=== PATIENT | male | born 1965 | race Caucasian/White ===

== ENCOUNTER 2024-02-13 13:45 | Outpatient (CLI) | payer OTHER, SELFPAY ==
--- NOTE | ~2024-02-13 | XR_ITS ---
EXAMINATION: XR knee RT min 4V DATE: 02/13/2024 14:12 INDICATION: Right knee pain TECHNIQUE: Weight bearing anteroposterior and Colon, sunrise, and flexed lateral views of the rig ht knee were obtained COMPARISON: None. FINDINGS: No fracture. There are small marginal osteophytes in all 3 compartments. There is mild joint space na rrowing in the medial compartment. There is mild lateral subluxation of the tibial plateau relative t o the femoral condyles within the in flexion small right knee joint effusion. Soft tissues are otherw ise unremarkable. IMPRESSION: 1. Mild medial compartment predominant tricompartmental osteoarthritis at the right knee with small k nee joint effusion. Reviewed, dictated and finalized at location A. IMPRESSION: 1. Mild medial compartment predominant tricompartmental osteoarthritis at the r ight knee with small knee joint effusion.
== END 2024-02-13 13:46 ==
PROVIDERS: PCP Physician Assistant; Visit Provider Physician Assistant
DX: M17.11 Unilateral primary osteoarthritis, right knee (principal); M25.461 Effusion, right knee
CPT/HCPCS: 73564

== ENCOUNTER 2024-02-18 13:41 | Outpatient (CLI) | payer OTHER, SELFPAY ==
--- NOTE | ~2024-02-18 | US_ITS ---
EXAMINATION: US soft tissue LE LT DATE: 02/18/2024 13:59 INDICATION: Follicular cyst of the skin and subcutaneous tissues with palpable lump at the lateral le ft knee TECHNIQUE: Multiple grayscale and Doppler ultrasound images of the region of concern at the lateral l eft knee were obtained. COMPARISON: None FINDINGS: There is a 2.5 x 2.7 x 0.9 cm complex cystic structure at the anterolateral aspect of the left knee c onsider a ganglion cyst and given location centered at the level of the joint line most likely a para labral cyst. Reviewed, dictated and finalized at location B.
== END 2024-02-18 13:42 ==
LOC: MICIMG 13:44
PROVIDERS: PCP Physician Assistant; Visit Provider Physician Assistant
DX: L72.9 Follicular cyst of the skin and subcutaneous tissue, unspecified (principal)
CPT/HCPCS: 76882

== ENCOUNTER 2024-03-30 09:16 | Outpatient (CLI) | payer OTHER, SELFPAY ==
[2024-03-30 10:08] LABS: Appearance Urine Clear (Clear); Bilirubin Urine Negative (Negative); Blood Urine Negative (Negative); Color Urine Yellow (Yellow); Glucose Urine UA Negative (Negative); Ketones Urine Negative (Negative); Leukocyte Esterase Ur Negative LEU/UL (Negative); Nitrate Urine Negative (Negative); Protein Urine Negative (Negative); Specific Grav Ur 1.011 (1.001-1.035); Urobilinogen Urine 0.2 mg/dL (<2.0); pH Urine 5.5 (5.0-9.0)
[2024-03-30 10:21] LABS: Add Urine Microscopic? NO
[2024-03-30 10:37] LABS: Hematocrit 44.1 % (42.0-52.0); Hemoglobin 15.2 g/dL (14.0-18.0); Mean Corpuscular HGB Conc 34.5 g/dl (32-36); Mean Corpuscular Hemoglobin 35.6 pg (26-34); Mean Corpuscular Volume 103.3 fl (80-100); Mean Platelet Volume 9.7 fl (7.4-10.4); Platelet Count Result 204 k/mm3 (150-375); Red Blood Count 4.27 M/mm3 (4.6-6.20); Red Cell Distribution Width 13.8 % (11.5-14.5); White Blood Count 5.1 K/mm3 (4.5-10.0)
[2024-03-30 10:58] LABS: LDL Cholesterol Direct 50 mg/dL
[2024-03-30 10:59] LABS: Alanine Aminotransferase 51 U/L (6-50); Albumin Level 4.7 g/dL (3.5-5.1); Alkaline Phosphatase 68 U/L (38-126); Anion Gap 7 mmol/L (4-12); Aspartate Amino Transferase 76 U/L (17-59); Bilirubin,Total 0.9 mg/dL (0.2-1.3); Blood Urea Nitrogen 7 mg/dL (9-20); Carbon Dioxide 29 mmol/L (22-30); Chloride 105 mmol/L (98-107); Cholesterol 195 mg/dL (0-200); Estimated Glomerular Filt Rate > 60; Glucose 91 mg/dL (65-110); Potassium 4.2 mmol/L (3.4-5.0); Sodium 141 mmol/L (137-145); Triglycerides 39 mg/dL (<150)
[2024-03-30 11:16] LABS: Prostate Specific Antigen 0.7 ng/mL (< OR = 4.0)
[2024-03-30 16:27] LABS: HDL Direct 149 mg/dL
== END 2024-03-30 09:17 | disposition home or self-care (01) ==
PROVIDERS: PCP Family Medicine; Visit Provider Physician Assistant
DX: Z00.00 Encounter for general adult medical examination without abnormal findings (principal); Z12.5 Encounter for screening for malignant neoplasm of prostate
CPT/HCPCS: 36415; 80053; 80061; 81003; 84153; 84443; 85027; G0103

== ENCOUNTER 2024-08-13 10:13 | Outpatient (CLI) | payer OTHER, SELFPAY ==
[2024-08-13 10:44] LABS: Alanine Aminotransferase 35 U/L (6-50); Albumin Level 4.6 g/dL (3.5-5.1); Alkaline Phosphatase 56 U/L (38-126); Anion Gap 5 mmol/L (4-12); Aspartate Amino Transferase 55 U/L (17-59); Bilirubin,Total 0.8 mg/dL (0.2-1.3); Blood Urea Nitrogen 6 mg/dL (9-20); Calcium 9.6 mg/dL (8.4-10.2); Carbon Dioxide 31 mmol/L (22-30); Chloride 100 mmol/L (98-107); Estimated Glomerular Filt Rate > 60; Glucose 87 mg/dL (65-110); Potassium 4.5 mmol/L (3.4-5.0); Sodium 136 mmol/L (137-145)
== END 2024-08-13 10:14 | disposition home or self-care (01) ==
LOC: ANHLAB 10:13
PROVIDERS: PCP Family Medicine; Visit Provider Physician Assistant Medical
DX: R74.01 Elevation of levels of liver transaminase levels (principal)
CPT/HCPCS: 36415; 80053

== ENCOUNTER 2025-08-19 09:49 | Outpatient (CLI) | payer OTHER, SELFPAY ==
[2025-08-19 10:26] LABS: Hematocrit 44.6 % (42.0-52.0); Hemoglobin 15.4 g/dL (14.0-18.0); Immature Granulocyte Percent A 0.2 % (0-0.5); Lymphocytes Absolute Auto 1.60 K/mm3 (0.9-3.2); Mean Corpuscular HGB Conc 34.5 g/dl (32-36); Mean Corpuscular Hemoglobin 35.6 pg (26-34); Mean Corpuscular Volume 103.0 fl (80-100); Nucleated Red Blood Cells Absolute Auto 0.000 K/mm3 (0.0-0.012); Nucleated Red Blood Cells Perc 0.0 % (0.0-0.2); Platelet Count Result 185 k/mm3 (150-375); Red Blood Count 4.33 M/mm3 (4.6-6.20); White Blood Count 4.7 K/mm3 (4.5-10.0)
[2025-08-19 10:45] LABS: Hemoglobin A1C 5.1 % (<5.7)
[2025-08-19 10:49] LABS: Alanine Aminotransferase 24 U/L (6-50); Albumin Level 4.7 g/dL (3.5-5.1); Alkaline Phosphatase 61 U/L (38-126); Anion Gap 7 mmol/L (4-12); Aspartate Amino Transferase 47 U/L (17-59); Bilirubin,Total 0.8 mg/dL (0.2-1.3); Blood Urea Nitrogen 6 mg/dL (9-20); Calcium 9.3 mg/dL (8.4-10.2); Carbon Dioxide 30 mmol/L (22-30); Chloride 99 mmol/L (98-107); Cholesterol 225 mg/dL (0-200); Estimated Glomerular Filt Rate > 60; Glucose 90 mg/dL (65-110); Potassium 4.3 mmol/L (3.4-5.0); Sodium 136 mmol/L (137-145); Total Protein 8.0 g/dL (6.3-8.2); Triglycerides 55 mg/dL (<150)
[2025-08-19 11:20] LABS: Hepatitis B Surface Antigen Negative (Negative)
[2025-08-19 11:26] LABS: HAV RESULT Negative (Negative); Hepatitis B Core IgM Result Negative (Negative)
[2025-08-19 11:33] LABS: HDL Direct 136 mg/dL
== END 2025-08-19 09:50 | disposition home or self-care (01) ==
LOC: ANHLAB 09:52
PROVIDERS: PCP Family Medicine; Visit Provider Physician Assistant
DX: R03.0 Elevated blood-pressure reading, without diagnosis of hypertension (principal); R74.01 Elevation of levels of liver transaminase levels; Z00.00 Encounter for general adult medical examination without abnormal findings; Z13.1 Encounter for screening for diabetes mellitus; Z13.220 Encounter for screening for lipoid disorders
CPT/HCPCS: 36415; 80053; 80061; 80074; 83036; 85025